=== PATIENT | male | born 1990 | race Caucasian/White ===

== ENCOUNTER 2017-10-09 16:00 | Emergency (ER) | payer SELFPAY ==
[2017-10-09 16:07] VITALS: BP 150/91
[2017-10-09] MEDS ORDERED: NORMAL SALINE 1000 ML 1,000 ML IV ONE (16:45)
[2017-10-09] MEDS ORDERED: ONDANSETRON HCL INJ/PF 4 MG/2 ML SDV IV ONE (16:45)
--- NOTE | 2017-10-09 16:46 | ER Document Report ---
ED Dizziness/Weakness - General Chief Complaint: Dizziness Stated Complaint: WEAKNESS Time Seen by Provider: 10/09/17 16:45 Mode of Arrival: Ambulatory Information source: Patient Notes: Patient states he has had weakness today with concentrated urine. He states he has been taking cold medicine [id number] and feels like he may be dehydrated. He states he feels lightheaded weak and dizzy as well. Symptoms are constant. They are worse by exertion better with rest. They do not radiate. They have been present for about 1 day. Patient states she is taking [id number] pain medication for cough cold and congestion. TRAVEL OUTSIDE OF THE [place] IN LAST 30 DAYS: No - Related Data Allergies/Adverse Reactions: Cat/Feline Product Derivatives * [Cat/Feline Product Derivatives] Allergy ( Verified 10/09/17 16:48) shrimp Allergy (Uncoded 10/09/17 16:48) Past Medical History - General Information source: Patient - Social History Smoking Status: Never Smoker Chew tobacco use (# tins/day): No Frequency of alcohol use: None Drug Abuse: None Family History: Reviewed & Not Pertinent Patient has suicidal ideation: No Patient has homicidal ideation: No Pulmonary Medical History: Reports: Hx Asthma Renal/ Medical History: Denies: Hx Peritoneal Dialysis Psychiatric Medical History: Reports: Hx Depression - Immunizations Immunizations up to date: No Hx Diphtheria, Pertussis, Tetanus Vaccination: No Review of Systems - Review of Systems Cardiovascular: denies: Chest pain, Palpitations Respiratory: Cough. denies: Short of breath Gastrointestinal: Nausea. denies: Diarrhea, Vomiting -: Yes All other systems reviewed and negative Physical Exam - Vital signs Vitals: Temp Pulse Resp BP Pulse Ox 98.5 F 92 14 150/91 H 98 10/09/17 16:06 10/09/17 16:06 10/09/17 16:06 10/09/17 16:06 10/09/17 16:06 Interpretation: Hypertensive - General General appearance: Appears well, Alert - HEENT Head: Normocephalic, Atraumatic Eyes: Normal Pupils: PERRL - Respiratory Respiratory status: No respiratory distress Chest status: Nontender Breath sounds: Normal Chest palpation: Normal - Cardiovascular Rhythm: Regular Heart sounds: Normal auscultation Murmur: No - Abdominal Inspection: Normal Distension: No distension Bowel sounds: Normal Tenderness: Nontender Organomegaly: No organomegaly - Back Back: Normal, Nontender - Extremities General upper extremity: Normal inspection, Nontender, Normal color, Normal ROM , Normal temperature General lower extremity: Normal inspection, Nontender, Normal color, Normal ROM , Normal temperature, Normal weight bearing. No: Nader's sign - Neurological Neuro grossly intact: Yes Cognition: Normal Orientation: AAOx4 Timmy Coma Scale Eye Opening: Spontaneous Timmy Coma Scale Verbal: Oriented Timmy Coma Scale Motor: Obeys Commands [place] Coma Scale Total: 15 Speech: Normal Motor strength normal: LUE, RUE, LLE, RLE Sensory: Normal - Psychological Associated symptoms: Normal affect, Normal mood - Skin Skin Temperature: Warm Skin Moisture: Dry Skin Color: Normal Course - Re-evaluation Re-evalutation: 10/09/17 18:07 Patient feels better after fluids - Vital Signs Vital signs: Temp Pulse Resp BP Pulse Ox 98.5 F 92 14 150/91 H 98 10/09/17 16:06 10/09/17 16:06 10/09/17 16:06 10/09/17 16:06 10/09/17 16:06 - Laboratory Result Diagrams: 10/09/17 17:18 10/09/17 17:18 Laboratory results interpreted by me: 10/09/17 17:18 Monocytes % 15.8 H Discharge - Discharge Clinical Impression: Dehydration, mild Condition: Stable Disposition: HOME, SELF-CARE Instructions: Antinausea Medication ([facility]) Additional Instructions: Your blood pressure is elevated. Please have this rechecked within 1 week by your doctor. Prescriptions: Ondansetron [Zofran Odt 4 mg Tablet] 1 - 2 tab PO Q4H PRN #15 tab.rapdis PRN Reason: For Nausea/Vomiting Forms: Elevated Blood Pressure, Return to Work Referrals: KUSHAL MAKI MD [NO LOCAL MD] - Follow up in 1 week
[2017-10-09 17:04] LABS: APPEARANCE,URINE CLEAR; BILIRUBIN,URINE NEGATIVE (NEGATIVE); GLUCOSE, URINE NEGATIVE (NEGATIVE); KETONES,URINE NEGATIVE (NEGATIVE); LEUKOCYTE ESTERASE,URINE NEGATIVE (NEGATIVE); NITRITE,URINE NEGATIVE (NEGATIVE); PROTEIN,URINE NEGATIVE (NEGATIVE); URINE SPECIFIC GRAVITY 1.002; UROBILINOGEN,URINE NEGATIVE mg/dL (<2.0)
[2017-10-09 17:54] LABS: ABSOLUTE EOSINOPHILS # (AUTO) 0.1 10^3/uL (0.0-0.6); ABSOLUTE LYMPHOCYTES (AUTO) 1.1 10^3/uL (0.5-4.7); ABSOLUTE MONOCYTES (AUTO) 0.9 10^3/uL (0.1-1.4); ABSOLUTE NEUT (AUTO) 3.6 10^3/uL (1.7-8.2); BASOPHILS % (AUTO) 0.4 % (0-2); HEMATOCRIT 41.7 % (37.9-51.0); HEMOGLOBIN 14.5 g/dL (13.5-17.0); HGB HCT DIFFERENCE 1.8; LYMPHOCYTES % (AUTO) 19.3 % (13-45); MEAN CORPUSCULAR HEMOGLOBIN 31.4 pg (27.0-33.4); MEAN CORPUSCULAR HGB CONC 34.9 g/dL (32.0-36.0); MEAN CORPUSCULAR VOLUME 90 fl (80-97); MONOCYTES % (AUTO) 15.8 % (3-13); RED BLOOD COUNT 4.63 10^6/uL (4.35-5.55); RED CELL DISTRIBUTION WIDTH 12.8 % (11.5-14.0); SEGMENTED NEUTROPHILS % (AUTO) 62.5 % (42-78); WHITE BLOOD COUNT 5.8 10^3/uL (4.0-10.5)
[2017-10-09 18:03] LABS: ALANINE AMINOTRANSFERASE 48 U/L (21-72); ALBUMIN 4.5 g/dL (3.5-5.0); ALKALINE PHOSPHATASE 78 U/L (38-126); ASPARTATE AMINO TRANSFERASE 35 U/L (17-59); BILIRUBIN,DIRECT 0.1 mg/dL (0.0-0.4); BILIRUBIN,TOTAL 0.3 mg/dL (0.2-1.3); BLOOD UREA NITROGEN 16 mg/dL (7-20); CALCIUM 9.4 mg/dL (8.4-10.2); CARBON DIOXIDE 27 mmol/L (22-30); CREATININE RESULT 1.02 mg/dL (0.52-1.25); GLUCOSE 88 mg/dL (75-110); NEONATAL BILIRUBIN RESULT 0.2 mg/dL (0.1-1.1); POTASSIUM 3.9 mmol/L (3.6-5.0); TOTAL PROTEIN 7.2 g/dL (6.3-8.2)
[2017-10-09 18:05] LABS: ANION GAP 15 (5-19); CHLORIDE 100 mmol/L (98-107); SODIUM 142.1 mmol/L (137-145)
== END 2017-10-09 18:25 | disposition home or self-care (01) ==
LOC: ER 16:00
DX: E86.0 Dehydration (principal); R53.1 Weakness; R42 Dizziness and giddiness; R05 Cough; R11.0 Nausea; J45.909 Unspecified asthma, uncomplicated; Z91.048 Other nonmedicinal substance allergy status; Z91.013 Allergy to seafood
CPT/HCPCS: 99284; 96361; 96374; 36415; 85025; 80053; 81001; J2405; J7030

== ENCOUNTER 2017-10-12 17:47 | Emergency (ER) | payer SELFPAY ==
--- NOTE | 2017-10-12 18:24 | ER Document Report ---
ED Medical Screen (RME) - General Chief Complaint: Abdominal Pain Stated Complaint: ABDOMINAL PAIN Time Seen by Provider: 10/12/17 18:04 Notes: This 26-year-old male patient comes emergency room complaining of abdominal pain , a rotten egg sulfur smelling and taste when he burps, trouble moving his bowels. States yesterday he developed abdominal pain after eating, that his bowel movements have been small, formed, and yellow. He was seen here 2 days ago for sore throat and diagnosed with dehydration, despite having a urine with a specific gravity 1.02, a BUN of 16, a white blood cell count 5800 and a blood sugar of 88. He states he was able to rehydrate himself and get his blood sugar corrected. He states he has pain across his mid to lower abdomen. He requested to be checked out for an intestinal obstruction or bacteria. I have greeted and performed a rapid initial assessment of this patient. A comprehensive ED assessment and evaluation of the patient, analysis of test results and completion of the medical decision making process will be conducted by additional ED providers. TRAVEL OUTSIDE OF THE [place] IN LAST 30 DAYS: No - Related Data Allergies/Adverse Reactions: Cat/Feline Product Derivatives * [Cat/Feline Product Derivatives] Allergy ( Verified 10/09/17 16:48) shrimp Allergy (Uncoded 10/09/17 16:48) Home Medications: Current Home Medications Acyclovir 800 mg PO 5XD PRN 10/12/17 [History] Past Medical History - Social History Chew tobacco use (# tins/day): No Frequency of alcohol use: None Drug Abuse: None Pulmonary Medical History: Reports: Hx Asthma Renal/ Medical History: Denies: Hx Peritoneal Dialysis Psychiatric Medical History: Reports: Hx Depression - Immunizations Immunizations up to date: No Hx Diphtheria, Pertussis, Tetanus Vaccination: No Physical Exam - Vital signs Vitals: Temp Pulse Resp BP Pulse Ox 98.9 F 98 16 136/87 H 96 10/12/17 18:02 10/12/17 18:02 10/12/17 18:02 10/12/17 18:02 10/12/17 18:02 Course - Vital Signs Vital signs: Temp Pulse Resp BP Pulse Ox 98.9 F 98 16 136/87 H 96 10/12/17 18:02 10/12/17 18:02 10/12/17 18:02 10/12/17 18:02 10/12/17 18:02
[2017-10-12 18:44] LABS: ABSOLUTE BASOPHILS # (AUTO) 0.1 10^3/uL (0.0-0.2); ABSOLUTE EOSINOPHILS # (AUTO) 0.1 10^3/uL (0.0-0.6); ABSOLUTE LYMPHOCYTES (AUTO) 1.6 10^3/uL (0.5-4.7); ABSOLUTE MONOCYTES (AUTO) 1.2 10^3/uL (0.1-1.4); ABSOLUTE NEUT (AUTO) 7.7 10^3/uL (1.7-8.2); BASOPHILS % (AUTO) 0.7 % (0-2); HEMATOCRIT 41.7 % (37.9-51.0); HEMOGLOBIN 14.7 g/dL (13.5-17.0); HGB HCT DIFFERENCE 2.4; LYMPHOCYTES % (AUTO) 15.4 % (13-45); MEAN CORPUSCULAR HEMOGLOBIN 31.6 pg (27.0-33.4); MEAN CORPUSCULAR HGB CONC 35.2 g/dL (32.0-36.0); MEAN CORPUSCULAR VOLUME 90 fl (80-97); MONOCYTES % (AUTO) 10.9 % (3-13); RED BLOOD COUNT 4.64 10^6/uL (4.35-5.55); RED CELL DISTRIBUTION WIDTH 12.7 % (11.5-14.0); WHITE BLOOD COUNT 10.7 10^3/uL (4.0-10.5)
[2017-10-12] MEDS ORDERED: DICYCLOMINE HCL 20 MG TABLET PO ONE (18:53)
[2017-10-12] MEDS ORDERED: KETOROLAC TROMETHAMINE 10 MG TABLET PO ONE (18:53)
--- NOTE | 2017-10-12 18:55 | ER Document Report ---
ED GI/ - General Chief Complaint: Abdominal Pain Stated Complaint: ABDOMINAL PAIN Time Seen by Provider: 10/12/17 18:04 Notes: 26 years old male presents today with lower abdominal cramps associated with one episode of loose stools yesterday since then having passing a lot of gas but no stools. And also having low back pain 2. Denies any nausea vomiting denies any fever chills denies any dysuria frequency urgency. Prior to this he claims that his bowel habits are regular. Early this week he was treated with IV hydration for possible dehydration due to viral illness. TRAVEL OUTSIDE OF THE [place] IN LAST 30 DAYS: No - Related Data Allergies/Adverse Reactions: Cat/Feline Product Derivatives * [Cat/Feline Product Derivatives] Allergy ( Verified 10/09/17 16:48) shrimp Allergy (Uncoded 10/09/17 16:48) Home Medications: Current Home Medications Acyclovir 800 mg PO 5XD PRN 10/12/17 [History] Past Medical History - Social History Smoking Status: Never Smoker Chew tobacco use (# tins/day): No Frequency of alcohol use: None Drug Abuse: None Family History: Reviewed & Not Pertinent Patient has suicidal ideation: No Patient has homicidal ideation: No Pulmonary Medical History: Reports: Hx Asthma Renal/ Medical History: Denies: Hx Peritoneal Dialysis Psychiatric Medical History: Reports: Hx Depression - Immunizations Immunizations up to date: No Hx Diphtheria, Pertussis, Tetanus Vaccination: No Review of Systems - Review of Systems Notes: REVIEW OF SYSTEMS: CONSTITUTIONAL : Denies fever, chills, or sweats. Denies recent illness. EENT: Denies eye, ear, throat, or mouth pain or symptoms. Denies nasal or sinus congestion or discharge. Denies throat, tongue, or mouth swelling or difficulty swallowing. CARDIOVASCULAR: Denies chest pain. Denies palpitations or racing or irregular heart beat. Denies ankle edema. RESPIRATORY: Denies cough, cold, or chest congestion. Denies shortness of breath, difficulty breathing, or wheezing. GASTROINTESTINAL: tarry stools. Denies constipation. GENITOURINARY: Denies difficulty urinating, painful urination, burning, frequency, blood in urine, or discharge. MUSCULOSKELETAL: Denies back or neck pain or stiffness. Denies joint pain or swelling. SKIN: Denies rash, lesions or sores. HEMATOLOGIC : Denies easy bruising or bleeding. LYMPHATIC: Denies swollen, enlarged glands. NEUROLOGICAL: Denies confusion or altered mental status. Denies passing out or loss of consciousness. Denies dizziness or lightheadedness. Denies headache. Denies weakness or paralysis or loss of use of either side. Denies problems with gait or speech. Denies sensory loss, numbness, or tingling. Denies seizures. PSYCHIATRIC: Denies anxiety or stress. Denies depression, suicidal ideation, or homicidal ideation. ALL OTHER SYSTEMS REVIEWED AND NEGATIVE. Dictation was performed using [employer] voice recognition software PHYSICAL EXAMINATION: GENERAL: Well-appearing, well-nourished and in no acute distress. HEAD: Atraumatic, normocephalic. EYES: Pupils equal round and reactive to light, extraocular movements intact, sclera anicteric, conjunctiva are normal. ENT: Nares patent, oropharynx clear without exudates. Moist mucous membranes. NECK: Normal range of motion, supple without lymphadenopathy LUNGS: Breath sounds clear to auscultation bilaterally and equal. No wheezes rales or rhonchi. HEART: Regular rate and rhythm without murmurs ABDOMEN: Soft, nontender, nondistended abdomen. No guarding, no rebound. No masses appreciated. Musculoskeletal: Normal range of motion, no pitting or edema. No cyanosis. NEUROLOGICAL: Cranial nerves grossly intact. Normal speech, normal gait. Normal sensory, motor exams PSYCH: Normal mood, normal affect. SKIN: Warm, Dry, normal turgor, no rashes or lesions noted. Physical Exam - Vital signs Vitals: Temp Pulse Resp BP Pulse Ox 98.9 F 98 16 136/87 H 96 10/12/17 18:02 10/12/17 18:02 10/12/17 18:02 10/12/17 18:02 10/12/17 18:02 Course - Re-evaluation Re-evalutation: 10/12/17 19:28 X-ray report reviewed, it was explained to the patient that he has large amount of retained stool. - Vital Signs Vital signs: Temp Pulse Resp BP Pulse Ox 98.9 F 98 16 136/87 H 96 10/12/17 18:02 10/12/17 18:02 10/12/17 18:02 10/12/17 18:02 10/12/17 18:02 - Laboratory Result Diagrams: 10/12/17 18:32 12/16/17 18:32 Laboratory results interpreted by me: 10/12/17 18:32 WBC 10.7 H Discharge - Discharge Clinical Impression: Retained feces Qualifiers: Constipation type: slow transit constipation Qualified Code(s): K59.01 - Slow transit constipation Condition: Fair Disposition: HOME, SELF-CARE Instructions: Abdominal Pain ([facility]), Antispasmodics ([facility]) Prescriptions: Dicyclomine HCl [Bentyl 10 mg Capsule] 1 cap PO TID #30 cap Ketorolac Tromethamine 10 mg PO TID #10 tablet Lubiprostone [Amitiza 24 Mcg Capsule] 24 mcg PO DAILY #60 capsule
[2017-10-12 19:07] LABS: ALANINE AMINOTRANSFERASE 49 U/L (21-72); ALBUMIN 4.7 g/dL (3.5-5.0); ALKALINE PHOSPHATASE 78 U/L (38-126); ANION GAP 13 (5-19); ASPARTATE AMINO TRANSFERASE 32 U/L (17-59); BILIRUBIN,DIRECT 0.3 mg/dL (0.0-0.4); BILIRUBIN,TOTAL 0.5 mg/dL (0.2-1.3); BLOOD UREA NITROGEN 13 mg/dL (7-20); CALCIUM 9.5 mg/dL (8.4-10.2); CARBON DIOXIDE 29 mmol/L (22-30); CHLORIDE 99 mmol/L (98-107); CREATININE RESULT 1.05 mg/dL (0.52-1.25); GLUCOSE 88 mg/dL (75-110); LIPASE 91.4 U/L (23-300); POTASSIUM 4.5 mmol/L (3.6-5.0); SODIUM 140.6 mmol/L (137-145); TOTAL PROTEIN 7.6 g/dL (6.3-8.2)
--- NOTE | 2017-10-12 19:31 | RADIOLOGY REPORT (SQ) ---
EXAM DESCRIPTION: ABDOMEN 2 VIEWS COMPLETED DATE/TIME: 10/12/2017 7:22 pm REASON FOR STUDY: Abdominal pain COMPARISON: None. NUMBER OF VIEWS: Two views. TECHNIQUE: Supine and erect/decubitus radiographic images of the abdomen acquired. LIMITATIONS: None. FINDINGS: FREE AIR: None. No abnormal gas collections. LUNG BASES: Clear. BOWEL GAS PATTERN: Nonobstructive pattern. No dilated loops or air fluid levels. CALCIFICATIONS: No suspicious calcifications. SOFT TISSUES: No gross mass or suggestion of organomegaly. HARDWARE: None in the abdomen. BONES: No acute fracture. No worrisome bone lesions. OTHER: No other significant finding. IMPRESSION: NO RADIOGRAPHIC EVIDENCE FOR ACUTE ABDOMINAL DISEASE. TECHNICAL DOCUMENTATION: JOB ID: [id number] [facility]- All Rights Reserved
[2017-10-12 19:56] VITALS: BP 141/80
== END 2017-10-12 19:56 | disposition home or self-care (01) ==
LOC: ER 17:47
DX: K59.01 Slow transit constipation (principal); M54.5 Low back pain; R10.30 Lower abdominal pain, unspecified; J45.909 Unspecified asthma, uncomplicated; Z91.048 Other nonmedicinal substance allergy status; Z91.013 Allergy to seafood
CPT/HCPCS: 99284; 36415; 83690; 85025; 80053; 74020; J3490

== ENCOUNTER 2017-12-17 13:44 | Emergency (ER) | payer SELFPAY ==
[2017-12-17 14:03] VITALS: BP 128/91
--- NOTE | 2017-12-17 14:49 | ER Document Report ---
ED General - General Mode of Arrival: Ambulatory Information source: Patient TRAVEL OUTSIDE OF THE [place] IN LAST 30 DAYS: No - General Chief Complaint: Low Blood Sugar Stated Complaint: LIGHTHEADED,HAND NUMBNESS Time Seen by Provider: 12/17/17 14:27 Notes: Patient is a 27-year-old male with a history of hypoglycemia presents to the emergency department complaining of dizziness and bilateral arm numbness onset this morning. Patient states that lately when he eats sugary foods he would immediately have dizzy spells. Patient states that he did not have any sugar this morning but began to have bilateral numbness from his fingertips to his forearm arm as well as dizziness. He further states his arms began to feel ice cold and clammy. Patient report drinking a copious amount of water today to alleviate symptoms. Patient denies nausea, vomiting, or diarrhea. At bedside patient states that he is feeling better than before. (CAYLA RODRIGUEZ) - Related Data Allergies/Adverse Reactions: Cat/Feline Product Derivatives * [Cat/Feline Product Derivatives] Allergy ( Verified 12/17/17 17:18) No Known Drug Allergies Allergy (Verified 12/17/17 17:18) shrimp Allergy (Uncoded 12/17/17 17:18) Past Medical History - General Information source: Patient - Social History Smoking Status: Never Smoker Chew tobacco use (# tins/day): No Frequency of alcohol use: None Drug Abuse: None Family History: Other - Hypoglycemia Patient has suicidal ideation: No Patient has homicidal ideation: No Pulmonary Medical History: Reports: Hx Asthma Psychiatric Medical History: Reports: Hx Depression - Immunizations Immunizations up to date: No Hx Diphtheria, Pertussis, Tetanus Vaccination: No Review of Systems - Review of Systems Constitutional: No symptoms reported EENT: No symptoms reported Cardiovascular: See HPI, Dizziness Respiratory: No symptoms reported Gastrointestinal: No symptoms reported Genitourinary: No symptoms reported Male Genitourinary: No symptoms reported Musculoskeletal: No symptoms reported Skin: No symptoms reported Hematologic/Lymphatic: No symptoms reported Neurological/Psychological: See HPI, Numbness -: Yes All other systems reviewed and negative Physical Exam - General General appearance: Appears well, Alert In distress: None - HEENT Head: Normocephalic, Atraumatic Eyes: Normal Pupils: PERRL Neck: Normal - Respiratory Respiratory status: No respiratory distress Chest status: Nontender Breath sounds: Normal - Cardiovascular Rhythm: Regular Heart sounds: Normal auscultation Murmur: No Friction rub: No Gallop: None auscultated - Vital signs Vitals: Temp Pulse Resp BP Pulse Ox 97.9 F 87 14 128/91 H 100 12/17/17 14:02 12/17/17 14:02 12/17/17 14:02 12/17/17 14:02 12/17/17 14:02 Course - Re-evaluation Re-evalutation: 12/17/17 14:49 Blood sugar checked and was 84. (CAYLA RODRIGUEZ) - Vital Signs Vital signs: Temp Pulse Resp BP Pulse Ox 97.9 F 87 14 128/91 H 100 12/17/17 14:02 12/17/17 14:02 12/17/17 14:02 12/17/17 14:02 12/17/17 14:02 Discharge - Discharge Clinical Impression: Dizzy spells Condition: Stable Disposition: HOME, SELF-CARE Additional Instructions: Please follow up with the community clinic as discussed for primary establishment. Return to the emergency department for any new or worsening symptoms. Scribe Attestation: 12/19/17 03:41 I personally performed the services described documentation, reviewed and edited the documentation which was dictated to describe my presence, and it accurately records my words and actions. (YASIR BAH)
== END 2017-12-17 15:03 | disposition home or self-care (01) ==
LOC: ER 13:44
DX: R42 Dizziness and giddiness (principal); R20.0 Anesthesia of skin; E16.2 Hypoglycemia, unspecified
CPT/HCPCS: 82962; 99284

== ENCOUNTER 2017-12-17 17:18 | Emergency (ER) | payer SELFPAY ==
[2017-12-17 17:23] VITALS: BP 150/98
--- NOTE | 2017-12-17 17:52 | ER Document Report ---
ED Medical Screen (RME) - General TRAVEL OUTSIDE OF THE [place] IN LAST 30 DAYS: No <YASIR BAH - Last Filed: 12/17/17 17:47> <CAYLA RODRIGUEZ - Last Filed: 12/17/17 17:59> - General Chief Complaint: Low Blood Pressure Stated Complaint: BLOOD PRESSURE ISSUES Time Seen by Provider: 12/17/17 17:47 Notes: Patient presents for concern of low blood pressure. Patient was in [employer] where he works and was found to have a low diastolic blood pressure. However, in the emergency department he has no signs of hypotension. After discussion with the patient he states that he has been having anxiousness and under much more stress than normal. Patient was seen by me just approximately an hour to 2 ago for concerns of tingling in his bilateral upper extremities. I had lengthy discussion with patient regarding management of his anxiousness and stress. Patient states that he has been stressful has been trying to use breathing exercises to help control his stress. (YASIR BAH) - Related Data Allergies/Adverse Reactions: Cat/Feline Product Derivatives * [Cat/Feline Product Derivatives] Allergy ( Verified 12/17/17 17:18) No Known Drug Allergies Allergy (Verified 12/17/17 17:18) shrimp Allergy (Uncoded 12/17/17 17:18) Past Medical History - Social History Chew tobacco use (# tins/day): No Frequency of alcohol use: None Drug Abuse: None Pulmonary Medical History: Reports: Hx Asthma Renal/ Medical History: Denies: Hx Peritoneal Dialysis Psychiatric Medical History: Reports: Hx Depression - Immunizations Immunizations up to date: No Hx Diphtheria, Pertussis, Tetanus Vaccination: No <YASIR BAH - Last Filed: 12/17/17 17:47> - General Information source: Patient - Social History Family history: Reviewed & Not Pertinent <CAYLA RODRIGUEZ - Last Filed: 12/17/17 17:59> Review of Systems - Review of Systems Constitutional: No symptoms reported, Other - More stress than normal EENT: No symptoms reported Cardiovascular: No symptoms reported Respiratory: No symptoms reported Gastrointestinal: No symptoms reported Genitourinary: No symptoms reported Male Genitourinary: No symptoms reported Musculoskeletal: No symptoms reported, Other - Intermittent tingling of bilateral upper extremities Skin: No symptoms reported Hematologic/Lymphatic: No symptoms reported Neurological/Psychological: No symptoms reported <YASIR BAH - Last Filed: 12/17/17 17:47> Physical Exam - General General appearance: Appears well, Alert - HEENT Head: Normocephalic, Atraumatic - Respiratory Respiratory status: No respiratory distress Chest status: Nontender - Cardiovascular Rhythm: Regular Heart sounds: Normal auscultation Murmur: No - Abdominal Inspection: Normal <YASIR BAH - Last Filed: 12/17/17 17:47> - General General appearance: Appears well, Alert - HEENT Head: Normocephalic, Atraumatic <CAYLA RODRIGUEZ - Last Filed: 12/17/17 17:59> - Vital signs Vitals: Temp Pulse Resp BP Pulse Ox 98.5 F 101 H 20 150/98 H 100 12/17/17 17:22 12/17/17 17:22 12/17/17 17:22 12/17/17 17:22 12/17/17 17:22 - Re-evaluation Re-evalutation: 12/17/17 17:50 Had lengthy discussion with patient regarding stress and anxiety and management tools to help cope with this situation. I will prescribe Vistaril to help him get a good night sleep and he is to follow-up with online materials regarding stress management as well as community clinic. (YASIR BAH) - Vital Signs Vital signs: Temp Pulse Resp BP Pulse Ox 98.5 F 101 H 20 150/98 H 100 12/17/17 17:22 12/17/17 17:22 12/17/17 17:22 12/17/17 17:22 12/17/17 17:22 Doctor's Discharge <YASIR BAH - Last Filed: 12/17/17 17:47> <CAYLA RODRIGUEZ - Last Filed: 12/17/17 17:59> - Discharge Clinical Impression: Stress Disposition: HOME, SELF-CARE Additional Instructions: Please look up literature online regarding stress management follow-up with community clinic for refill of Vistaril if this helps you get a good night sleep Prescriptions: Hydroxyzine Pamoate [Vistaril 25 mg Capsule] 25 mg PO DAILY #30 capsule
== END 2017-12-17 17:56 | disposition home or self-care (01) ==
LOC: ER 17:18
DX: F43.9 Reaction to severe stress, unspecified (principal); I95.9 Hypotension, unspecified; Z91.013 Allergy to seafood
CPT/HCPCS: 99283

== ENCOUNTER 2018-11-28 16:48 | Emergency (ER) | payer SELFPAY ==
[2018-11-28] MEDS ORDERED: KETOROLAC TROMETHAMINE INJ/PF 30 MG/1 ML SDV IV ONE (17:25)
[2018-11-28] MEDS ORDERED: NORMAL SALINE 1000 ML 1,000 ML IV ONE (17:25)
[2018-11-28] MEDS ORDERED: LOPERAMIDE HCL 2 MG CAPSULE PO ONE (17:25)
[2018-11-28] MEDS ORDERED: ONDANSETRON HCL INJ/PF 4 MG/2 ML SDV IV ONE (17:25)
--- NOTE | 2018-11-28 17:27 | ER Document Report ---
HPI - HPI Time Seen by Provider: 11/28/18 17:13 Onset/Duration: Gradual Quality of pain: Achy Pain Level: 1 Context: Patient reports a 3-day history of flulike symptoms. Patient states that he has had nausea with diarrhea x4 episodes. Patient denies any fever or vomiting. Patient complains of chills and generalized body aches. Patient does report multiple sick contacts in the household with similar symptoms. Patient states that he has had some dizziness in which she feels his depth perception has been off today. Associated Symptoms: Body/muscle aches, Chills, Diarrhea, Nausea, Rhinnorhea, Sinus pain/drainage. denies: Fever, Headache, Vomiting Exacerbated by: Denies Relieved by: Denies Similar symptoms previously: No Recently seen / treated by doctor: No - ROS ROS below otherwise negative: Yes Systems Reviewed and Negative: Yes All other systems reviewed and negative - CONSTITUTIONAL Constitutional: REPORTS: Chills. DENIES: Fever - EENT EENT: REPORTS: Sore Throat, Congestion - RESPIRATORY Respiratory: REPORTS: Coughing. DENIES: Trouble Breathing - GASTROINTESTINAL Gastrointestinal: REPORTS: Nausea, Diarrhea. DENIES: Abdominal Pain - MUSCULOSKELETAL Musculoskeletal: REPORTS: Extremity pain - Generalized body aches - DERM Skin Color: Normal Skin Problems: None Past Medical History - General Information source: Patient - Social History Smoking Status: Never Smoker Chew tobacco use (# tins/day): No Frequency of alcohol use: None Drug Abuse: None Occupation: Retail Lives with: Family Family History: Other - Hypoglycemia Patient has suicidal ideation: No Patient has homicidal ideation: No Pulmonary Medical History: Reports: Hx Asthma Renal/ Medical History: Denies: Hx Peritoneal Dialysis Psychiatric Medical History: Reports: Hx Depression Surgical Hx: Negative - Immunizations Immunizations up to date: No Hx Diphtheria, Pertussis, Tetanus Vaccination: No Vertical Provider Document - CONSTITUTIONAL Agree With Documented VS: Yes Exam Limitations: No Limitations General Appearance: WD/WN, No Apparent Distress - INFECTION CONTROL TRAVEL OUTSIDE OF THE [place] IN LAST 30 DAYS: No - HEENT HEENT: Atraumatic, Normal ENT Exam, Normocephalic. negative: Pharyngeal Exudate, Pharyngeal Tenderness, Pharyngeal Erythema, Tympanic Membrane Red, Tympanic Membrane Bulging Notes: Clear rhinorrhea - NECK Neck: Normal Inspection, Supple. negative: Lymphadenopathy-Left, Lymphadenopathy-Right - RESPIRATORY Respiratory: Breath Sounds Normal, No Respiratory Distress, Chest Non-Tender - CARDIOVASCULAR Cardiovascular: Regular Rate, Regular Rhythm, No Murmur. negative: Tachycardia - GI/ABDOMEN Gastrointestinal: Abdomen Soft, Abdomen Non-Tender, No Organomegaly, Normal Bowel Sounds - BACK Back: Normal Inspection - MUSCULOSKELETAL/EXTREMETIES Musculoskeletal/Extremeties: BAN IGLESIAS - NEURO Level of Consciousness: Awake, Alert, Appropriate Motor/Sensory: No Motor Deficit - DERM Integumentary: Warm, Dry, No Rash Course - Re-evaluation Re-evalutation: 11/28/18 18:50 Patient without any additional diarrhea while here. Patient continues to deny any abdominal tenderness. Patient nontoxic in appearance. Patient does complain of occasional dizziness in which she feels off balance. Patient without any chest pain or dyspnea symptoms. Suspect likely viral etiology given the fact that patient's family members have had similar symptoms. Patient othe rwise neurologically intact. Good return precautions discussed with patient, patient stable for discharge at this time. Patient encouraged to have a family member drive him home given his complaints about feeling off balance. 11/28/18 18:53 Patient without any cough or respiratory symptoms at this visit. Patient does report a history of asthma and is out of his inhaler and would like a refill t remberto. - Vital Signs Vital signs: Temp Pulse Resp BP Pulse Ox 98.1 F 84 18 131/82 H 99 11/28/18 16:59 11/28/18 16:59 11/28/18 16:59 11/28/18 16:59 11/28/18 16:59 - Laboratory Result Diagrams: 11/28/18 17:50 11/28/18 17:50 Laboratory results interpreted by me: 11/28/18 18:50 Labs- Entire Visit 11/28/18 11/28/18 17:50 17:50 WBC 13.8 H RBC 4.60 Hgb 14.7 Hct 41.6 MCV 90 MCH 31.9 MCHC 35.3 RDW 12.6 Plt Count 249 Seg Neutrophils % 78.6 H Lymphocytes % 10.4 L Monocytes % 10.0 Eosinophils % 0.8 Basophils % 0.2 Absolute Neutrophils 10.9 H Absolute Lymphocytes 1.4 Absolute Monocytes 1.4 Absolute Eosinophils 0.1 Absolute Basophils 0.0 Sodium 139.1 Potassium 3.9 Chloride 100 Carbon Dioxide 29 Anion Gap 10 BUN 15 Creatinine 0.90 Est GFR ( Amer) > 60 Est GFR (Non-Af Amer) > 60 Glucose 105 Calcium 9.6 Discharge - Discharge Clinical Impression: Vertigo, Nasal congestion, Viral illness Diarrhea Qualifiers: Diarrhea type: unspecified type Qualified Code(s): R19.7 - Diarrhea, unspecifi ed Condition: Stable Disposition: HOME, SELF-CARE Instructions: Acetaminophen, Antinausea Medication ([facility]), Diarrhea, Nonspecific ([facility]), Intravenous (IV) Fluids ([facility]), Meclizine ([facility]), Vertigo ([facility]), Viral Syndrome ([facility]) Additional Instructions: Return immediately for any new or worsening symptoms Followup with your primary care provider, call tomorrow to make a followup appointment Stay well-hydrated Prescriptions: Albuterol Sulfate [Proair Hfa Inhalation Aerosol 8.5 gm Mdi] 2 puff IH Q4 PRN #1 mdi PRN Reason: Meclizine HCl [Antivert 25 mg Tablet] 25 mg PO ASDIR PRN #12 tablet PRN Reason: Naproxen [Naprosyn 250 Nmg Tablet] 1 tab PO BID #14 tablet Ondansetron HCl [Zofran 4 mg Tablet] 1 - 2 tab PO Q6 PRN #15 tablet PRN Reason: Forms: Return to Work Referrals: [facility] [Provider Group] - Follow up as needed
[2018-11-28 18:12] LABS: ABSOLUTE EOSINOPHILS # (AUTO) 0.1 10^3/uL (0.0-0.6); ABSOLUTE LYMPHOCYTES (AUTO) 1.4 10^3/uL (0.5-4.7); ABSOLUTE MONOCYTES (AUTO) 1.4 10^3/uL (0.1-1.4); ABSOLUTE NEUT (AUTO) 10.9 10^3/uL (1.7-8.2); BASOPHILS % (AUTO) 0.2 % (0-2); EOSINOPHILS % (AUTO) 0.8 % (0-6); HEMATOCRIT 41.6 % (37.9-51.0); HEMOGLOBIN 14.7 g/dL (13.5-17.0); LYMPHOCYTES % (AUTO) 10.4 % (13-45); MEAN CORPUSCULAR HEMOGLOBIN 31.9 pg (27.0-33.4); MEAN CORPUSCULAR HGB CONC 35.3 g/dL (32.0-36.0); MEAN CORPUSCULAR VOLUME 90 fl (80-97); PLATELET COUNT 249 10^3/uL (150-450); RED CELL DISTRIBUTION WIDTH 12.6 % (11.5-14.0); SEGMENTED NEUTROPHILS % (AUTO) 78.6 % (42-78); TOTAL CELLS COUNTED % (AUTO) 100 %; WHITE BLOOD COUNT 13.8 10^3/uL (4.0-10.5)
[2018-11-28 18:28] LABS: ANION GAP 10 (5-19); BLOOD UREA NITROGEN 15 mg/dL (7-20); CALCIUM 9.6 mg/dL (8.4-10.2); CARBON DIOXIDE 29 mmol/L (22-30); CHLORIDE 100 mmol/L (98-107); GLUCOSE 105 mg/dL (75-110); POTASSIUM 3.9 mmol/L (3.6-5.0); SODIUM 139.1 mmol/L (137-145)
[2018-11-28] MEDS ORDERED: MECLIZINE HCL 25 MG TABLET PO ONE (18:50)
[2018-11-28 19:04] VITALS: BP 131/72
== END 2018-11-28 19:03 | disposition home or self-care (01) ==
LOC: ER 16:48
DX: R42 Dizziness and giddiness (principal); R11.0 Nausea; B34.9 Viral infection, unspecified; R19.7 Diarrhea, unspecified; R68.83 Chills (without fever); R09.81 Nasal congestion
CPT/HCPCS: 99283; 96361; 96374; 96375; 36415; 85025; 80048; J1885; J2405; J7030

== ENCOUNTER → 2019-04-21 | Outpatient (CLI) | payer MEDICAID ==
--- NOTE | 2019-04-21 11:28 | RADIOLOGY REPORT (SQ) ---
EXAM DESCRIPTION: KNEE RIGHT 4 VIEWS COMPLETED DATE/TIME: 04/21/2019 10:25 am REASON FOR STUDY: RECURRENT PAIN OF BOTH KNEES M25.561 PAIN IN RIGHT KNEE COMPARISON: None. NUMBER OF VIEWS: Four views. TECHNIQUE: AP, lateral, and both oblique radiographic images acquired of the right knee. LIMITATIONS: None. FINDINGS: MINERALIZATION: Normal. BONES: No acute fracture or dislocation. No worrisome bone lesions. JOINT: No effusion. SOFT TISSUES: No soft tissue swelling. No radio-opaque foreign body. OTHER: No other significant finding. IMPRESSION: NEGATIVE STUDY OF THE RIGHT KNEE. NO RADIOGRAPHIC EVIDENCE OF ACUTE INJURY. TECHNICAL DOCUMENTATION: JOB ID: [id number] [employer]- All Rights Reserved Reading location - IP/workstation name: [email or web address]
--- NOTE | 2019-04-21 11:28 | RADIOLOGY REPORT (SQ) ---
EXAM DESCRIPTION: KNEE LEFT 4 VIEWS COMPLETED DATE/TIME: 04/21/2019 10:25 am REASON FOR STUDY: RECURRENT PAIN OF BOTH KNEES M25.561 PAIN IN RIGHT KNEE COMPARISON: None. NUMBER OF VIEWS: Four views. TECHNIQUE: AP, lateral, and both oblique radiographic images acquired of the left knee. LIMITATIONS: None. FINDINGS: MINERALIZATION: Normal. BONES: No acute fracture or dislocation. No worrisome bone lesions. JOINT: No effusion. SOFT TISSUES: No soft tissue swelling. No radio-opaque foreign body. OTHER: No other significant finding. IMPRESSION: NEGATIVE STUDY OF THE LEFT KNEE. NO RADIOGRAPHIC EVIDENCE OF ACUTE INJURY. TECHNICAL DOCUMENTATION: JOB ID: [id number] [employer]- All Rights Reserved Reading location - IP/workstation name: [email or web address]
== END ==
LOC: OD 09:58
PROVIDERS: ATTEND Nurse Practitioner Family
DX: M25.561 Pain in right knee (principal)